=== PATIENT | female | born 1990 | race African-American/Black ===

== ENCOUNTER 2024-06-09 13:48 | Emergency (ER) | payer MEDICAID, SELFPAY ==
[2024-06-09 14:15] VITALS: PULSE 125; RESP 20; O2SAT 98
[2024-06-09 14:41] VITALS: BP 116/74; PULSE 122; RESP 20; TEMP 39.3; O2SAT 99; BMI 23.2
--- NOTE | 2024-06-09 14:42 | PC.NURSE ---
sepsis alert called
--- NOTE | 2024-06-09 14:49 | PD.EDADULT ---
ED General RME/HPI General Chief complaint: Urogenital-Female Stated complaint: FEVER, BACK PAIN, PAINFUL URINATION, NAUSEA Time Seen by Provider: 06/09/24 14:41 Arrival date/time: 06/09/24 13:48 RME / HPI RME / HPI narrative: This section includes all my notes and documentations, including HPI, PE, MDM, Procedure Notes, and PLAN. Cullen Dunne MD HPI: 34 year old female with history of endometriosis presents to the ED for complaint of I have a UTI today. Reports her symptoms include urinary frequency, dysuria, left flank pain, fevers, and nausea. States she was evaluated here 1 month ago for similar symptoms and diagnosed with a UTI, started on antibiotics which she completed and symptoms improved. States today she consulted with PCP and noted to have a fever in office and was advised to come here. No other complaints reported. ROS: Gastrointestinal: negative except as documented in HPI. Genitourinary: negative except as documented in HPI. Musculoskeletal: negative except as documented in HPI. Skin: negative except as documented in HPI. Neurological: negative except as documented in HPI. Physical Exam: General: Alert and oriented. Appears to be in pain. Eyes: Conjunctivae and lids clear. Lungs: No respiratory distress. Abdomen: Soft and nontender. Normal bowel sounds. No distension. No rebound or guarding. Skin: Warm and dry. Neuro: Alert and oriented X 3. The care of the patient was transferred to Claudia Roth NP at 6 PM on 06/09/2024. Cullen Dunne MD Related Data Home Medications ?Medication ?Instructions ?Recorded ?Confirmed pantoprazole 40 mg tablet,delayed 40 mg PO QDAY 05/18/19 06/10/19 release (Protonix) ranitidine HCl 300 mg capsule 300 mg PO BID 06/10/19 06/10/19 Previous Rx's ?Medication ?Instructions ?Recorded docusate sodium 100 mg capsule 100 mg PO BID #50 caps 06/07/19 (Colace) hydrocodone 5 mg-acetaminophen 325 1 tab PO Q6H PRN pain #20 tabs 06/07/19 mg tablet ([place]) ibuprofen 600 mg tablet 600 mg PO Q8H PRN pain (scale 06/07/19 score 4-6) #14 tabs meclizine 50 mg tablet 50 mg PO BID PRN dizziness #30 tabs 08/06/23 rizatriptan 10 mg tablet (Maxalt) 10 mg PO Q2H PRN migraine headache 08/06/23 #20 tabs albuterol sulfate 90 mcg/actuation 2 puff inhalation Q6H PRN 12/28/23 aerosol inhaler (Ventolin HFA) shortness of breath or wheezing #8.5 grams benzonatate 200 mg capsule 200 mg PO BID PRN cough #14 caps 12/28/23 albuterol sulfate 2.5 mg/3 mL 2.5 mg (3 mL) inhalation Q6H PRN 12/29/23 (0.083 %) solution for nebulization shortness of breath #90 mL promethazine-DM 6.25 mg-15 mg/5 mL 5 ml PO Q6H PRN cough #240 mL 12/29/23 oral syrup cyclobenzaprine 10 mg tablet 10 mg PO TID PRN muscle spasm #20 05/14/24 tabs ciprofloxacin HCl 500 mg tablet 500 mg PO BID 7 days #14 tabs 06/09/24 (Cipro) ibuprofen 600 mg tablet 600 mg PO Q8H PRN fever or pain 06/09/24 #30 tabs phenazopyridine 100 mg tablet 100 mg PO TID PRN pain 6 doses #6 06/09/24 (Pyridium) tabs Allergies Allergy/AdvReac Type Severity Reaction Status Date / Time oyster extract Allergy Severe Anaphylaxis Verified 05/14/24 08:06 morphine Allergy Verified 06/09/24 14:20 Review of Systems Review of Systems Systems Reviewed: All systems reviewed, normal except as documented Past Medical History Past Medical History NEUROLOGIC: Positive Neurological Disorders, Migraine and Head Trauma RESPIRATORY: Positive Bronchitis GASTROINTESTINAL: Positive Gastrointestinal Disorders, Gall Bladder Disease, Irritable Bowel, Crohn's Disease and Hemorrhoids GENITOURINARY: Positive Genitourinary Disorders and Kidney Stones REPRODUCTIVE: Positive Endometriosis and Previous Pregnancies MUSCULOSKELETAL: Positive Musculoskeletal Disorders and Fractures ENT: Positive Head Trauma PSYCHO/SOCIAL: Positive Depression, Anxiety and Post Traumatic Stress Disorder OTHER HISTORY: Positive Hospitalization Family History FAMILY HISTORY: Positive Family Cancer and Family Surgery Surgical History SURGICAL: Positive Oral Surgery, Joint Replacement, Open Reduction Internal Fixation, Hysterectomy and Tubal Ligation Social History SMOKING STATUS: Never smoker SUBSTANCE USE: does not use ED Exam Narrative Physical exam: As noted in HPI Course Quality Measures Current suspected stage: sepsis Possible source: genitourinary Blood cultures ordered: completed in ED Antibiotic ordered: Yes Pertinent labs: 06/09/24 14:58 Lactic Acid 1.2 mMol/L (0.4-2.0) sepsis Orders Category Date Time Status CT Screening NOW Care 06/09/24 14:55 Completed Saline [Insert IV] NOW Care 06/09/24 14:[address] abdomen pelvis w con Stat Exams 06/09/24 14:55 Completed XR chest 1V portable Stat Exams 06/09/24 14:56 Completed CBC Stat Lab 06/09/24 14:58 Completed CMP [Comprehensive Metabolic Panel] Stat Lab 06/09/24 14:58 Completed HCG Qualitative,Urine Stat Lab 06/09/24 14:58 Completed Lactate (Lactic Acid) Stat Lab 06/09/24 14:58 Completed Magnesium Stat Lab 06/09/24 14:58 Completed UA [Urinalysis] Stat Lab 06/09/24 14:58 Completed Acetaminophen Ivpb [Ofirmev Inj] Med 06/09/24 14:50 Discontinued 1,000 mg in 100 ml IV NOW HYDROmorphone INJ [Dilaudid Inj] Med 06/09/24 14:50 Discontinued 1 mg IVP X1 ONE KCL 10% Liq UDC 15 ML Med 06/09/24 16:21 Discontinued 20 meq PO X1 ONE Ketorolac Inj [Toradol Inj] Med 06/09/24 14:50 Discontinued 30 mg IVP X1 ONE Ondansetron Inj [Zofran Inj] Med 06/09/24 14:50 Discontinued 4 mg IV X1 ONE Phenazopyridine HCl [Pyridium] Med 06/09/24 19:16 Discontinued 100 mg PO X1 ONE Sodium Chloride 0.9% 1000 ml [Ns] 1,000 ml Med 06/09/24 14:50 Discontinued IV 999 mls/hr cefTRIAXone/D5w 1gm IV premix [Rocephin/D5w 1gm IV Med 06/09/24 14:52 Discontinued premix] 50 ml IV X1 Vital Signs Vital signs: Vital Signs Temperature 102.8 F H 06/09/24 14:41 Pulse Rate 122 H 06/09/24 14:41 Respiratory Rate 20 06/09/24 14:41 Blood Pressure 116/74 06/09/24 14:41 Pulse Oximetry (%) 99 06/09/24 14:41 Oxygen Delivery Method Room Air 06/09/24 14:41 Pulse ox is 99% on room air which is adequate. [facility] Patient data External records reviewed:: [facility] previous records (I reviewed ED visit on 05/14/2024) Clinical information provided by:: patient Social determinants that could affect healthcare access:: none Patient has the following chronic illnesses:: Endometriosis How is presenting disease/condition affected by chronic disease/condition?: uneffected by Evaluation data The following diagnostics were reviewed and interpreted by me:: lab results and radiology exam(s) Lab and/or radiology exams considered but not ordered:: None Interpretation Summary: Ordering Physician: Cullen Dunne MD Date of Service: 06/09/24 Procedure(s): XR chest 1V portable Accession Number(s): [id number] cc: Cullen Dunne MD; Gilberto Thomas MD; Rm García PA-C~ Examination: PA chest single view TECHNIQUE: Upright PA chest single view INDICATIONS: Shortness of breath today Exam date and time: June 09, 2024 1732 hours FINDINGS: Normal heart size Lungs are clear. The osseous structures are intact IMPRESSION: No active disease Dictated By: Gilberto Thomas MD Signed By: <Electronically signed by Gilberto Thomas MD in OV> 06/09/24 1525 Medications Medications considered but not ordered:: None Medication administrations:: Medication Administration History Discontinued Medications Hydromorphone HCl (Hydromorphone Inj 2 Mg/Ml Vial) 1 mg IVP X1 ONE Stop: 06/09/24 14:51 Last Admin: 06/09/24 16:57 Dose: 1 mg Documented By: EF Sodium Chloride (Ns) 1,000 mls @ 999 mls/hr IV .Q1H1M ONE Stop: 06/09/24 15:50 Last Infusion: 06/09/24 18:30 Dose: Infused Documented By: Admin: 06/09/24 16:50 Dose: 999 mls/hr Documented By: EF Acetaminophen (Ofirmev Inj) 1,000 mg in 100 mls @ 250 mls/hr IV NOW ONE Stop: 06/09/24 15:13 Last Infusion: 06/09/24 18:37 Dose: Infused Documented By: Admin: 06/09/24 16:52 Dose: 250 mls/hr Documented By: EF Ceftriaxone Sodium/Dextrose (Rocephin/D5w 1gm Iv Premix) 50 mls @ 100 mls/hr IV X1 ONE Stop: 06/09/24 15:21 Last Infusion: 06/09/24 18:27 Dose: Infused Documented By: Admin: 06/09/24 17:57 Dose: 100 mls/hr Documented By: EF Ketorolac Tromethamine (Ketorolac Inj 30 Mg/Ml Vial) 30 mg IVP X1 ONE Stop: 06/09/24 14:51 Last Admin: 06/09/24 16:52 Dose: 30 mg Documented By: EF Ondansetron HCl (Ondansetron Inj 2 Mg/Ml Inj 2 Ml) 4 mg IV X1 ONE; Protocol Stop: 06/09/24 14:51 Last Admin: 06/09/24 16:53 Dose: 4 mg Documented By: EF Phenazopyridine HCl (Phenazopyridine Hcl 100 Mg Tablet) 100 mg PO X1 ONE Stop: 06/09/24 19:17 Last Admin: 06/09/24 19:58 Dose: 100 mg Documented By: SF Potassium Chloride (Potassium Chloride 10% 20 Meq/15 Ml Udc) 20 meq PO X1 ONE Stop: 06/09/24 16:22 Last Admin: 06/09/24 17:20 Dose: 20 meq Documented By: EF See above Consultations Consultation(s) initiated? (list below): No Diagnosis Differential Diagnosis ED Complaint MDM: Sepsis, UTI, pyelonephritis Most likely diagnosis given after review of the tests above:: UTI Admission Indicated Admission indicated?: not indicated Explain why admission is indicated or not indicated:: Patient signed out to [employer] Claudia Roth pending CT report and final disposition. Admission Request Was there a request for admission?: No Disposition Plan Disposition Plan: other (specify) (Patient signed out pending CT ) Medical Decision Making Differential Diagnosis Differential Diagnosis: Sepsis, UTI, pyelonephritis Lab Data 06/09/24 14:58 06/09/24 14:58 Labs: Lab Results 06/09/24 Range/Units 14:58 WBC 5.8 (3.6-11.0) Thou/mm3 RBC 4.22 (4.00-5.20) Miln/mm3 Hgb 12.7 (12.0-16.0) g/dL Hct 37.1 (36.0-46.0) % MCV 88 (80-100) fL MCH 30.1 (25.0-35.0) pg MCHC 34.2 (31.0-37.0) g/dl RDW Std Deviation 39.5 (36.4-46.3) fL Plt Count 239 (140-440) Thou/mm3 Neut % (Auto) 83 H (37-80) % Lymph % (Auto) 6 L (10-50) % Hand % (Auto) 8 (0-12) % Eos % (Auto) 3 (0-10) % Baso % (Auto) 0 (0-2.5) % Neut # (Auto) 4.8 (1.8-7.7) Thou/mm3 Lymph # (Auto) 0.3 L (1.0-4.8) Thou/mm3 Hand # (Auto) 0.5 (0.0-0.8) Thou/mm3 Eos # (Auto) 0.2 (0.0-0.5) Thou/mm3 Baso # (Auto) 0.0 (0.0-0.2) Thou/mm3 Immature Gran # (Auto) 0.01 H (0.00-0.00) Thou/mm3 Absolute Nucleated RBC 0.00 (0.00-0.00) Thou/mm3 Immature Gran % 0 (0-0) % Nucleated RBC % 0 (0) /100 WBC Sodium 135 L (136-145) mMol/L Potassium 3.3 L (3.4-5.1) mMol/L Chloride 104 (98-107) mMol/L Carbon Dioxide 22.8 (20.0-31.0) mMol/L Anion Gap 8 (7-16) BUN 10 (9-23) mg/dL Creatinine 0.9 (0.6-1.3) mg/dL Estim Creat Clear Calc 69.7 (>60) mL/min eGFR > 60 (60 - ) See Note BUN/Creatinine Ratio 11 L (12-20) Ratio Glucose 126 H (74-106) mg/dL Calculated Osmolality 271 L (275-295) Lactic Acid 1.2 (0.4-2.0) mMol/L Calcium 9.7 (8.3-10.6) mg/dL Corrected Calcium 9.7 (8.5-10.1) mg/dL Magnesium 1.8 (1.6-2.6) mg/dL Total Bilirubin 0.4 (0.3-1.2) mg/dL AST 18 (0-34) U/L ALT 24 (10-49) U/L Alkaline Phosphatase 66 (46-116) U/L Total Protein 7.5 (5.7-8.2) gm/dL Albumin 5.1 H (3.5-5.0) gm/dL Globulin 2.4 (2.3-3.5) gm/dL Albumin/Globulin Ratio 2.1 (1.2-2.2) Ur Collection Type Clean Catch Urine Color Yellow (Lt Yel-Yel) Urine Clarity Hazy (Clear/Hazy) Urine pH 6.0 (5.0-7.0) Ur Specific [place] 1.031 (1.001-1.035) Urine Protein 1+ A (Neg - Trace) Urine Glucose (UA) Negative (Negative) Urine Ketones 1+ A (Negative) Urine Blood 2+ A (Negative) Urine Nitrite Negative (Negative) Urine Bilirubin Negative (Negative) Urine Urobilinogen (Auto) 3.0 (0.0-1.0) mg/dL Ur Leukocyte Esterase Negative (Negative) Urine RBC 27 H (0-3) /hpf Urine WBC 3 (0-5) /hpf Ur Squamous Epith Cells 16 H (0-5) /hpf Urine Bacteria Rare (None) Urine HCG, Qual Negative Discharge Plan Plan Patient Disposition: HOME (Self Care) Patient condition on transfer: Stable Prescriptions/Referrals Prescriptions/Med Rec: New phenazopyridine [Pyridium] 100 mg tablet 100 mg PO TID PRN (Reason: pain) Qty: 6 0RF ciprofloxacin HCl [Cipro] 500 mg tablet 500 mg PO BID 7 Days Qty: 14 0RF ibuprofen 600 mg tablet 600 mg PO Q8H PRN (Reason: fever or pain) Qty: 30 0RF No Action pantoprazole [Protonix] 40 mg Tablet,Delayed Release (Dr/Ec) 40 mg PO QDAY ranitidine HCl 300 mg Capsule 300 mg PO BID docusate sodium [Colace] 100 mg capsule 100 mg PO BID Qty: 50 0RF hydrocodone-acetaminophen [[place]] 5-325 mg tablet 1 tab PO Q6H MDD 4 PRN (Reason: pain) Qty: 20 0RF ibuprofen 600 mg tablet 600 mg PO Q8H PRN (Reason: pain (scale score 4-6)) Qty: 14 0RF albuterol sulfate [Ventolin HFA] 90 mcg/actuation HFA aerosol inhaler 2 puff inhalation Q6H PRN (Reason: shortness of breath or wheezing) Qty: 8.5 0RF benzonatate 200 mg capsule 200 mg PO BID PRN (Reason: cough) Qty: 14 0RF albuterol sulfate 2.5 mg /3 mL (0.083 %) solution for nebulization 2.5 mg inhalation Q6H PRN (Reason: shortness of breath) Qty: 90 0RF promethazine-DM 6.25-15 mg/5 mL syrup 5 ml PO Q6H PRN (Reason: cough) Qty: 240 0RF cyclobenzaprine 10 mg tablet 10 mg PO TID PRN (Reason: muscle spasm) Qty: 20 0RF meclizine 50 mg tablet 50 mg PO BID PRN (Reason: dizziness) Qty: 30 0RF rizatriptan [Maxalt] 10 mg tablet 10 mg PO Q2H PRN (Reason: migraine headache) Qty: 20 0RF Rx Instructions: do not exceed 3 doses per 24 hrs Referrals: Rm García PA-C [Primary Care Provider] - In 1 week Problem List Clinical Impression: Urinary tract infection Patient/Caregiver Discharge Instructions Education Materials: ED CYSTITIS Female Adult Additional Instructions: Please follow-up with your primary doctor or clinic in 2 days for follow-up care. You did receive 1 dose of antibiotics here. Continue antibiotic therapy at home. Return to the emergency department this any worsening symptoms change in condition. Print Language: Nepali Stand Alone Forms: Ana Award Info., Patient Portal Info Letter DEJA/KRISTY Supervising Physician PA/KRISTY Supervising Physician: dr DUNNE
--- NOTE | 2024-06-09 14:55 | XR_ITS ---
Examination: CT abdomen with intravenous contrast CT pelvis with intravenous contrast 2-D coronal reconstructions 2-D sagittal reconstructions Date and time of exam:June 09, 2024 at 1726 hours Comparison May 14, 2024 INDICATIONS: Left-sided flank pain nausea and fever beginning one month ago. History kidney stones CTDI: vol (mGy) 5.51 DLP: (mGycm) 270 Technique: Multiple axial sections of the abdomen and pelvis have been obtained. 64 slice high-resolution scanner used. 3 mm axial sections have been obtained, post intravenous injection 60 cc [id number] 2-D sagittal, coronal reconstructions obtained. Low dose protocols were performed. One or more of the following dose reduction techniques were used; automated exposure control, adjustment of the mA and/or KV according to patient size, use of iterative reconstruction technique. Findings: No focal liver or splenic lesions Absent gallbladder Common bile duct 10 mm no stones noted No pancreatic mass No adrenal mass No renal or ureteral calculi, no hydronephrosis Aorta normal size The appendix is fluid-filled and measures 5.6 mm, no definite pericecal or periappendiceal inflammatory change No bowel obstruction 3 cm left pelvic cyst The osseous structures are intact IMPRESSION: No renal or ureteral calculi, no hydronephrosis 3 cm left pelvic cyst, recommend pelvic sonography follow-up Appendix is fluid-filled and measures 5.6 mm but no definite pericecal or periappendiceal inflammatory change
--- NOTE | 2024-06-09 14:56 | XR_ITS ---
Examination: PA chest single view TECHNIQUE: Upright PA chest single view INDICATIONS: Shortness of breath today Exam date and time: June 09, 2024 1732 hours FINDINGS: Normal heart size Lungs are clear. The osseous structures are intact IMPRESSION: No active disease
[2024-06-09 15:12] LABS: Collection Type, Urine Clean Catch
[2024-06-09 15:14] LABS: Lactate (Lactic Acid) 1.2 mMol/L (0.4-2.0)
[2024-06-09 15:15] LABS: Basophils % (Auto) 0 % (0-2.5); Eosinophils # (Auto) 0.2 Thou/mm3 (0.0-0.5); Eosinophils % (Auto) 3 % (0-10); Hematocrit 37.1 % (36.0-46.0); Hemoglobin 12.7 g/dL (12.0-16.0); Immature Granulocytes % (Auto) 0 % (0-0); Immature Granulocytes Auto 0.01 Thou/mm3 (0.00-0.00); Lymphocytes # (Auto) 0.3 Thou/mm3 (1.0-4.8); Lymphocytes % (Auto) 6 % (10-50); Mean Corpuscular HGB Conc 34.2 g/dl (31.0-37.0); Mean Corpuscular Hemoglobin 30.1 pg (25.0-35.0); Mean Corpuscular Volume 88 fL (80-100); Monocytes # (Auto) 0.5 Thou/mm3 (0.0-0.8); Monocytes % (Auto) 8 % (0-12); Neutrophils # (Auto) 4.8 Thou/mm3 (1.8-7.7); Neutrophils % (Auto) 83 % (37-80); Nucleated Red Blood Cell % 0 /100 WBC (0); Platelet Count 239 Thou/mm3 (140-440); RDW Standard Deviation 39.5 fL (36.4-46.3); Red Blood Count 4.22 Miln/mm3 (4.00-5.20); White Blood Count 5.8 Thou/mm3 (3.6-11.0)
[2024-06-09 15:46] LABS: Alanine Aminotransferase 24 U/L (10-49); Albumin, Serum 5.1 gm/dL (3.5-5.0); Albumin/Globulin Ratio 2.1 (1.2-2.2); Alkaline Phosphatase 66 U/L (46-116); Anion Gap 8 (7-16); Aspartate Amino Transferase 18 U/L (0-34); BUN/Creatinine Ratio 11 Ratio (12-20); Bilirubin,Total 0.4 mg/dL (0.3-1.2); Blood Urea Nitrogen 10 mg/dL (9-23); Calcium 9.7 mg/dL (8.3-10.6); Calcium (Corrected) 9.7 mg/dL (8.5-10.1); Carbon Dioxide 22.8 mMol/L (20.0-31.0); Chloride 104 mMol/L (98-107); Creatinine (Component) 0.9 mg/dL (0.6-1.3); Estimated Creatinine Clearance 69.7 mL/min (>60); Globulin 2.4 gm/dL (2.3-3.5); Glucose 126 mg/dL (74-106); Magnesium 1.8 mg/dL (1.6-2.6); Osmolality,Calculated 271 (275-295); Potassium 3.3 mMol/L (3.4-5.1); Sodium 135 mMol/L (136-145); Total Protein 7.5 gm/dL (5.7-8.2); eGFR > 60 See Note
[2024-06-09 15:58] LABS: HCG Qualitative,Urine Negative
[2024-06-09 16:06] LABS: Bacteria,Urine Rare; Bilirubin,Urine Negative (Negative); Blood,Urine 2+ (Negative); Color,Urine Yellow (Lt Yel-Yel); Glucose, Urine Negative (Negative); Ketones,Urine 1+ (Negative); Leukocyte Esterase,Urine Negative (Negative); Nitrite,Urine Negative (Negative); Protein,Urine 1+ (Neg - Trace); RBC,Urine 27 /hpf (0-3); Specific Gravity,Urine 1.031 (1.001-1.035); Squamous Epithelial Cell,Urine 16 /hpf (0-5); WBC,Urine 3 /hpf (0-5)
--- NOTE | 2024-06-09 16:09 | PC.IP ---
PT STATES FEVER SYMPTOMS FOR 4 DAYS AND FLANK PAIN AND FREQUENT URINATION HAS BEEN ON AND OFF FOR PAST MONTH AND A HALF.
[2024-06-09 16:22] LABS: Clarity,Urine Hazy (Clear/Hazy)
[2024-06-09] MEDS: SODIUM CHLORIDE 0.9% 1000 ML 1,000 ML 999 ML IV (16:50)
[2024-06-09] MEDS: ACETAMINOPHEN IVPB 1,000 MG/100 ML VIAL 250 MG IV (16:52)
[2024-06-09] MEDS: KETOROLAC INJ 30 MG/ML VIAL IVP (16:52)
[2024-06-09] MEDS: ONDANSETRON INJ 2 MG/ML INJ 2 ML 4 MG IV (16:53)
[2024-06-09] MEDS: HYDROmorphone INJ 2 MG/ML VIAL 1 MG IVP (16:57)
[2024-06-09] MEDS: POTASSIUM CHLORIDE 10% 20 MEQ/15 ML UDC PO (17:20)
--- NOTE | 2024-06-09 17:23 | PC.NURSE ---
PATIENT TAKEN TO CT
[2024-06-09] MEDS: cefTRIAXone/D5w 1gm IV premix 50 ML IV (17:57)
[2024-06-09 18:27] VITALS: BP 130/91; PULSE 104; RESP 16; TEMP 37.6; O2SAT 97
--- NOTE | 2024-06-09 19:16 | PD.EDADDENDU ---
Emergency Room Addendum Addendum Narrative: Case handed over by DR DAVIS for revied and dspostion Reviewed patents CT-neg nephroliathiasis Neg leukocytosis Will Dc home with ABX, antiemetics, and pain meds close follow up with pcp
[2024-06-09] MEDS: PHENAZOPYRIDINE HCL 100 MG TABLET PO (19:58)
[2024-06-09 21:31] VITALS: BP 108/76; PULSE 93; RESP 19; TEMP 37.1; O2SAT 99
== END 2024-06-09 21:42 | disposition home or self-care (01) ==
PROVIDERS: Emergency Provider Emergency Medicine; PCP Family Medicine
DX: N39.0 Urinary tract infection, site not specified (principal); R06.02 Shortness of breath; R10.9 Unspecified abdominal pain; R11.0 Nausea
CPT/HCPCS: 36415; 71045; 74177; 80053; 81001; 81025; 83605; 83735; 85025; 96365; 96366; 96368; 96375; 99285; A4649; J0131; J0696; J1885; J2405; J3490; J7030; Q9967; A9270

== ENCOUNTER 2024-12-12 20:53 | Emergency (ER) | payer MEDICAID, SELFPAY ==
[2024-12-12 20:53] VITALS: BMI 22.4
[2024-12-12 21:17] VITALS: BP 115/78; PULSE 88; RESP 20; TEMP 37.1; O2SAT 95
--- NOTE | 2024-12-12 21:40 | XR_ITS ---
Examination: Pelvic ultrasound, transabdominal, complete Technique: Transabdominal ultrasound of the pelvis performed using grayscale imaging Date and time of exam: December 12, 2024 1056 hours INDICATIONS: Severe pelvic pain beginning today FINDINGS: Absent uterus Absent right ovary Left ovary obscured by bowel gas IMPRESSION: Limited study No pelvic mass No free fluid in the pelvis
--- NOTE | 2024-12-12 21:40 | XR_ITS ---
Examination: CT abdomen and pelvis without contrast. Coronal 3-D reconstructions. Sagittal 2-D reconstructions. Date and time of exam:December 13, 2024 0048 hours beginning today Comparison June 09, 2024 INDICATION: Left lower abdominal pain CTDI: vol (mGy): 4.93 DLP: (mGycm): 223 Technique: Axial images of the abdomen have been obtained, 3 mm slice thickness Intravenous contrast material has not been administered. Low dose protocols were performed. One or more of the following dose reduction techniques were used; automated exposure control, adjustment of the mA and/or KV according to patient size, use of iterative reconstruction technique. Findings: No liver or splenic lesion Absent gallbladder No extrahepatic biliary tract dilatation No pancreatic mass 1 mm nonobstructing right renal calculus, no hydronephrosis or ureteral calculi Normal appendix No bowel obstruction No pelvic mass No bladder mass or bladder calculi Osseous structures intact Impression: 1 mm nonobstructing right renal calculus, no hydronephrosis or ureteral calculi Normal appendix
[2024-12-12 22:47] LABS: Basophils % (Auto) 1 % (0-2.5); Eosinophils # (Auto) 0.1 Thou/mm3 (0.0-0.5); Eosinophils % (Auto) 1 % (0-10); Hematocrit 32.8 % (36.0-46.0); Hemoglobin 11.5 g/dL (12.0-16.0); Immature Granulocytes % (Auto) 0 % (0-0); Immature Granulocytes Auto 0.01 Thou/mm3 (0.00-0.00); Lymphocytes # (Auto) 1.7 Thou/mm3 (1.0-4.8); Lymphocytes % (Auto) 27 % (10-50); Mean Corpuscular HGB Conc 35.1 g/dl (31.0-37.0); Mean Corpuscular Hemoglobin 30.9 pg (25.0-35.0); Mean Corpuscular Volume 88 fL (80-100); Monocytes # (Auto) 0.7 Thou/mm3 (0.0-0.8); Monocytes % (Auto) 10 % (0-12); Neutrophils # (Auto) 3.9 Thou/mm3 (1.8-7.7); Neutrophils % (Auto) 61 % (37-80); Nucleated Red Blood Cell % 0 /100 WBC (0); Platelet Count 249 Thou/mm3 (140-440); RDW Standard Deviation 41.5 fL (36.4-46.3); Red Blood Count 3.72 Miln/mm3 (4.00-5.20); White Blood Count 6.3 Thou/mm3 (3.6-11.0)
[2024-12-12 23:15] LABS: Alanine Aminotransferase < 7 U/L (10-49); Albumin, Serum 4.2 gm/dL (3.5-5.0); Albumin/Globulin Ratio 2.5 (1.2-2.2); Alkaline Phosphatase 48 U/L (46-116); Anion Gap 8 (7-16); Aspartate Amino Transferase 12 U/L (0-34); BUN/Creatinine Ratio 14 Ratio (12-20); Bilirubin,Total 0.4 mg/dL (0.3-1.2); Blood Urea Nitrogen 14 mg/dL (9-23); Calcium 8.8 mg/dL (8.3-10.6); Calcium (Corrected) 8.8 mg/dL (8.5-10.1); Carbon Dioxide 28.3 mMol/L (20.0-31.0); Chloride 107 mMol/L (98-107); Estimated Creatinine Clearance 62.7 mL/min (>60); Globulin 1.7 gm/dL (2.3-3.5); Glucose 89 mg/dL (74-106); Lipase 37 U/L (12-53); Osmolality,Calculated 284 (275-295); Potassium 3.9 mMol/L (3.4-5.1); Sodium 143 mMol/L (136-145); Total Protein 5.9 gm/dL (5.7-8.2); eGFR > 60 See Note
[2024-12-13 00:22] LABS: Collection Type, Urine Voided
--- NOTE | 2024-12-13 00:36 | PD.EDRME ---
Rapid Medical Screening Exam RME Arrival date/time: 12/12/24 20:53 This is a case of 34-year-old female who came into the emergency room due to abdominal pain and pelvic pain for 2 weeks associated with nausea vomiting patient has a history of hysterectomy Chief Complaint: Abdominal Pain Time Seen by Provider: 12/12/24 21:13 Vital signs: Vital Signs Temperature 98.7 F 12/12/24 21:17 Pulse Rate 88 12/12/24 21:17 Respiratory Rate 20 12/12/24 21:17 Blood Pressure 115/78 12/12/24 21:17 Pulse Oximetry (%) 95 12/12/24 21:17 Oxygen Delivery Method Room Air 12/12/24 21:17
[2024-12-13 00:38] LABS: Bacteria,Urine Rare; Bilirubin,Urine Negative (Negative); Blood,Urine Negative (Negative); Clarity,Urine Turbid (Clear/Hazy); Color,Urine Yellow (Lt Yel-Yel); Glucose, Urine Negative (Negative); Ketones,Urine Negative (Negative); Leukocyte Esterase,Urine Negative (Negative); Nitrite,Urine Negative (Negative); PH,Urine 6.5 (5.0-7.0); Protein,Urine Trace (Neg - Trace); RBC,Urine 3 /hpf (0-3); Specific Gravity,Urine 1.026 (1.001-1.035); Squamous Epithelial Cell,Urine 7 /hpf (0-5); Urobilinogen,Urine Negative mg/dL (0.0-1.0); WBC,Urine 4 /hpf (0-5)
--- NOTE | 2024-12-13 01:27 | PRELIM_ITS ---
CT scan of the abdomen and pelvis without intravenous contrast (axial sections with sagittal and coronal reformats) December 13, 2024 at 0048 hours Clinical History: Abdominal pain. Comparison: None. Findings: The lung bases are clear. The liver, pancreas, spleen, kidneys and adrenals are unremarkable on this noncontrast study. Status postcholecystectomy. No evidence of bowel obstruction. The appendix is within normal limits. Fecal loading. There is no mesenteric or retroperitoneal adenopathy. The urinary bladder is unremarkable. There is no free fluid or free air. The osseous structures are unremarkable. No pelvic masses. Impression: Fecal loading. No evidence of kidney or ureteral stones. Report Electronically Signed By: Mitesh Verdin 12/13/2024 1:26:25 AM [EST]
--- NOTE | 2024-12-13 02:11 | PD.EDABDPN ---
ED Abdominal Pain RME/HPI General Chief Complaint: Abdominal Pain Stated complaint: LEFT LOWER ABDOMINAL PAIN Time seen by provider: 12/12/24 21:13 Arrival date/time: 12/12/24 20:53 RME / HPI RME / HPI narrative: 12/12/24 20:53 This is a case of 34-year-old female who came into the emergency room due to abdominal pain and pelvic pain for 2 weeks associated with nausea vomiting patient has a history of hysterectomy This section includes all my notes and documentations, including HPI, PE, and ED course. Cullen Dunne MD HPI: ROS: All negative except as documented in HPI. Physical Exam: General: Alert and oriented. No acute distress when remaining still. Eyes: Conjunctivae and lids clear. ENT: No nasal congestion. Neck: Supple. Heart: RRR. Lungs: No respiratory distress. Good air movement. No rhonchi, wheezing, rales. Abdomen: Soft and nontender. Normal bowel sounds. No distension. No rebound or guarding. Back: No CVA tenderness. Skin: Warm and dry. Neuro: Alert and oriented X 3. I reviewed all diagnostic test results. My review of the US pelvic report is unremarkable. My review of the CT abdomen pelvis report is unremarkable. Blood tests and urine tests are unremarkable. At this point, diagnoses include Treatment here included Significant improvement noted. Based on my best medical judgment, made decision no further evaluation or treatment indicated at this time. Patient understands and agrees to the discharge instructions customized and printed, see below. Cullen Dunne MD Related Data Home Medications ?Medication ?Instructions ?Recorded ?Confirmed pantoprazole 40 mg tablet,delayed 40 mg PO QDAY 05/18/19 06/10/19 release (Protonix) ranitidine HCl 300 mg capsule 300 mg PO BID 06/10/19 06/10/19 Previous Rx's ?Medication ?Instructions ?Recorded docusate sodium 100 mg capsule 100 mg PO BID #50 caps 06/07/19 (Colace) hydrocodone 5 mg-acetaminophen 325 1 tab PO Q6H PRN pain #20 tabs 06/07/19 mg tablet ([place]) ibuprofen 600 mg tablet 600 mg PO Q8H PRN pain (scale 06/07/19 score 4-6) #14 tabs meclizine 50 mg tablet 50 mg PO BID PRN dizziness #30 tabs 08/06/23 rizatriptan 10 mg tablet (Maxalt) 10 mg PO Q2H PRN migraine headache 08/06/23 #20 tabs albuterol sulfate 90 mcg/actuation 2 puff inhalation Q6H PRN 12/28/23 aerosol inhaler (Ventolin HFA) shortness of breath or wheezing #8.5 grams benzonatate 200 mg capsule 200 mg PO BID PRN cough #14 caps 12/28/23 albuterol sulfate 2.5 mg/3 mL 2.5 mg (3 mL) inhalation Q6H PRN 12/29/23 (0.083 %) solution for nebulization shortness of breath #90 mL promethazine-DM 6.25 mg-15 mg/5 mL 5 ml PO Q6H PRN cough #240 mL 12/29/23 oral syrup cyclobenzaprine 10 mg tablet 10 mg PO TID PRN muscle spasm #20 05/14/24 tabs ibuprofen 600 mg tablet 600 mg PO Q8H PRN fever or pain 06/09/24 #30 tabs phenazopyridine 100 mg tablet 100 mg PO TID PRN pain 6 doses #6 06/09/24 (Pyridium) tabs Allergies Allergy/AdvReac Type Severity Reaction Status Date / Time oyster extract Allergy Severe Anaphylaxis Verified 05/14/24 08:06 morphine Allergy Verified 06/09/24 14:20 Review of Systems Review of Systems Systems Reviewed: All systems reviewed, normal except as documented Past Medical History Past Medical History NEUROLOGIC: Positive Neurological Disorders, Migraine and Head Trauma; Negative Seizures CARDIAC: Negative Cardiac Disorders or Congestive Heart Failure RESPIRATORY: Positive Bronchitis; Negative Chronic Obstructive Pulmonary Disease (COPD) or Asthma GASTROINTESTINAL: Positive Gastrointestinal Disorders, Gall Bladder Disease, Irritable Bowel, Crohn's Disease and Hemorrhoids GENITOURINARY: Positive Genitourinary Disorders and Kidney Stones; Negative Renal Disease REPRODUCTIVE: Positive Endometriosis and Previous Pregnancies MUSCULOSKELETAL: Positive Musculoskeletal Disorders and Fractures ENT: Positive Head Trauma ENDOCRINE: Negative Endocrine Disorders, Diabetes Mellitus Type 1 or Diabetes Mellitus Type 2 HEMATOLOGIC: Negative Blood Disorders, Anemia or Sickle Cell Disease PSYCHO/SOCIAL: Positive Depression, Anxiety and Post Traumatic Stress Disorder OTHER HISTORY: Positive Hospitalization; Negative Autoimmune Disease, Down Syndrome, Developmental Delay, Shingles, Falls, Blood Transfusions, Anesthesia Reactions, MRSA, VRSA, Vancomycin-Resistant Enterococci, Clostridium Difficile or Cancer Family History FAMILY HISTORY: Positive Family Cancer and Family Surgery; Negative Family Cardiac Disorders or Family Anesthesia Reaction Surgical History SURGICAL: Positive Oral Surgery, Joint Replacement, Open Reduction Internal Fixation, Hysterectomy and Tubal Ligation; Negative Cardiac Surgery, Endocrine Surgery, Abdominal Surgery or Nephrectomy Social History SMOKING STATUS: Never smoker SUBSTANCE USE: does not use ED Exam Narrative Physical exam: As noted in HPI. Course Quality Measures none Orders Category Date Time Status CT abdomen pelvis wo con Stat Exams 12/12/24 21:40 Taken US pelvic complete Stat Exams 12/12/24 21:40 Completed CBC Stat Lab 12/12/24 22:24 Completed CMP [Comprehensive Metabolic Panel] Stat Lab 12/12/24 22:24 Completed Lipase Stat Lab 12/12/24 22:24 Completed Urinalysis Stat Lab 12/13/24 00:08 Completed Vital Signs Vital signs: Vital Signs Temperature 98.7 F 12/12/24 21:17 Pulse Rate 88 12/12/24 21:17 Respiratory Rate 20 12/12/24 21:17 Blood Pressure 115/78 12/12/24 21:17 Pulse Oximetry (%) 95 12/12/24 21:17 Oxygen Delivery Method Room Air 12/12/24 21:17 Abdominal Pain MDM Patient data External records reviewed:: [facility] previous records (Per chart review, patient was seen here on 06/09/24 for UTI.) Clinical information provided by:: patient Social determinants that could affect healthcare access:: none Patient has the following chronic illnesses:: none How is presenting disease/condition affected by chronic disease/condition?: no chronic disease Evaluation data The following diagnostics were reviewed and interpreted by me:: lab results and radiology exam(s) Lab and/or radiology exams considered but not ordered:: none Medications / Prescriptions Medications or Prescriptions considered but not ordered:: none Discharge Plan Prescriptions/Referrals Prescriptions/Med Rec: No Action pantoprazole [Protonix] 40 mg Tablet,Delayed Release (Dr/Ec) 40 mg PO QDAY ranitidine HCl 300 mg Capsule 300 mg PO BID docusate sodium [Colace] 100 mg capsule 100 mg PO BID Qty: 50 0RF hydrocodone-acetaminophen [[place]] 5-325 mg tablet 1 tab PO Q6H MDD 4 PRN (Reason: pain) Qty: 20 0RF ibuprofen 600 mg tablet 600 mg PO Q8H PRN (Reason: pain (scale score 4-6)) Qty: 14 0RF albuterol sulfate [Ventolin HFA] 90 mcg/actuation HFA aerosol inhaler 2 puff inhalation Q6H PRN (Reason: shortness of breath or wheezing) Qty: 8.5 0RF benzonatate 200 mg capsule 200 mg PO BID PRN (Reason: cough) Qty: 14 0RF albuterol sulfate 2.5 mg /3 mL (0.083 %) solution for nebulization 2.5 mg inhalation Q6H PRN (Reason: shortness of breath) Qty: 90 0RF promethazine-DM 6.25-15 mg/5 mL syrup 5 ml PO Q6H PRN (Reason: cough) Qty: 240 0RF cyclobenzaprine 10 mg tablet 10 mg PO TID PRN (Reason: muscle spasm) Qty: 20 0RF meclizine 50 mg tablet 50 mg PO BID PRN (Reason: dizziness) Qty: 30 0RF rizatriptan [Maxalt] 10 mg tablet 10 mg PO Q2H PRN (Reason: migraine headache) Qty: 20 0RF Rx Instructions: do not exceed 3 doses per 24 hrs phenazopyridine [Pyridium] 100 mg tablet 100 mg PO TID PRN (Reason: pain) Qty: 6 0RF ibuprofen 600 mg tablet 600 mg PO Q8H PRN (Reason: fever or pain) Qty: 30 0RF Referrals: No Primary/Family,Physician [Primary Care Provider] - In 1 week Patient/Caregiver Discharge Instructions Print Language: Telugu
--- NOTE | 2024-12-13 02:41 | PD.EDADDENDU ---
Emergency Room Addendum Addendum Narrative: MILLY saw the patient and entered orders. When I looked for the patient for my evaluation, I was told the patient eloped. Cullen Dunne MD
== END 2024-12-13 03:38 | disposition left against medical advice (07) ==
PROVIDERS: Nurse Practitioner Family; Emergency Provider Emergency Medicine
DX: R10.2 Pelvic and perineal pain (principal); Z53.29 Procedure and treatment not carried out because of patient's decision for other reasons; R11.2 Nausea with vomiting, unspecified; Z90.710 Acquired absence of both cervix and uterus
CPT/HCPCS: 36415; 74176; 76856; 80053; 81001; 83690; 85025; 99281